=== PATIENT | female | born 1965 | race Two or more races ===

== ENCOUNTER 2017-08-06 14:59 | Inpatient (IN) | payer MEDICAID ==
[~2017-08-06] VITALS: Ht 165.1 cm; Wt 55.5 kg
[2017-08-06] MEDS ORDERED: ONDANSETRON 2MG/ML, 2ML ONE (15:27)
[2017-08-06] MEDS ORDERED: FAMOTIDINE 20 MG/2 ML ONE (15:28)
[2017-08-06] MEDS ORDERED: ONDANSETRON 2MG/ML, 2ML IVPush ONE (15:30)
[2017-08-06] MEDS ORDERED: FAMOTIDINE 20 MG/2 ML IVP ONE (15:30)
[2017-08-06] MEDS ORDERED: SODIUM CHLORIDE FLUSH 10ML SYR IVF ONE (15:30)
[2017-08-06] MEDS ORDERED: SODIUM CHLORIDE 0.9% 1,000ML IVBOLUS ONE (15:30)
[2017-08-06 15:32] LABS: HEMOGLOBIN 15.9 g/dL (11.7-16.4); WHITE BLOOD COUNT 8.4 x10^3/uL (3.4-10)
[2017-08-06 15:40] LABS: ASPARTATE AMINO TRANSFERASE 65 U/L (15-37); BLOOD UREA NITROGEN 5 mg/dL (7-18)
[2017-08-06] MEDS ORDERED: THIAMINE IV ONE (16:00)
[2017-08-06] MEDS ORDERED: MAGNESIUM SULFATE IV ONE (16:00)
[2017-08-06] MEDS ORDERED: [UNRECOGNIZED DRUG - OTHER] IV ONE (16:00)
[2017-08-06] MEDS ORDERED: FOLIC ACID IV ONE (16:00)
[2017-08-06] MEDS ORDERED: MVI ADULT IV ONE (16:00)
[2017-08-06] MEDS ORDERED: LORazepam 2 MG/ML, 1ML IVPush PRN (16:30)
[2017-08-06 16:57] LABS: DAU SCREEN DISCLAIMER
[2017-08-06 17:02] LABS: PATH.CAST-FLAG NOT PRESENT; SPERM-FLAG NOT PRESENT; SRC-FLAG NOT PRESENT; XTAL-FLAG NOT PRESENT; YLC-FLAG NOT PRESENT
[2017-08-06] MEDS ORDERED: LORazepam 2 MG/ML, 1ML IV PRN ×5 (17:30)
[2017-08-06] MEDS ORDERED: MAALOX/HYOSCYAMINE/LIDOCAINE 45 ML BTL PO ONE (17:30)
[2017-08-06] MEDS ORDERED: LORazepam 1MG TABLET PO PRN ×4 (17:30)
[2017-08-06] MEDS ORDERED: GUAIFENESIN/DM 200-20MG, 10ML UDC PO PRN (17:30)
[2017-08-06] MEDS ORDERED: ONDANSETRON ODT 4 MG PO PRN (17:30)
[2017-08-06] MEDS ORDERED: LABETALOL 5MG/ML, 20ML IVPush PRN (17:30)
[2017-08-06] MEDS ORDERED: LORazepam 0.5MG TABLET PO PRN (17:30)
[2017-08-06] MEDS ORDERED: ONDANSETRON 2MG/ML, 2ML IVPush PRN (17:30)
[2017-08-06 19:36] LABS: BLOOD UREA NITROGEN 6 mg/dL (7-18)
[2017-08-06 19:46] LABS: POTASSIUM,URINE RANDOM 7 mmol/L
[2017-08-06 20:00] VITALS: BP 150/87
[2017-08-06] MEDS: HYDROcodone/APAP 5/325 TABLET PO PRN (21:42)
[2017-08-06] MEDS: OMEPRAZOLE 20 MG CAPSULE.DR PO SCH (21:42)
[2017-08-06] MEDS: ENOXAPARIN 40 MG/0.4 ML SQ SCH (21:43)
[2017-08-07 00:16] VITALS: BP 147/87
[2017-08-07 02:00] VITALS: BP 145/84
[2017-08-07] MEDS: THIAMINE 500 MG in SODIUM CHLORIDE 0.9% 50 ML IV SCH ×3 (02:25→18:41)
[2017-08-07] MEDS: HYDROcodone/APAP 5/325 TABLET PO PRN ×2 (02:40→20:14)
[2017-08-07 06:00] LABS: HEMATOCRIT 47.3 % (34.6-47.8); HEMOGLOBIN 16.2 g/dL (11.7-16.4); WHITE BLOOD COUNT 4.9 x10^3/uL (3.4-10)
[2017-08-07 06:06] LABS: BLOOD UREA NITROGEN 8 mg/dL (7-18)
[2017-08-07 06:48] VITALS: BP 140/87
[2017-08-07] MEDS ORDERED: POTASSIUM CHLORIDE 20 MEQ, MAGNESIUM SULFATE 1 GM, MVI ADULT 10 ML, FOLIC ACID 1 MG in ... IV SCH (08:00)
[2017-08-07] MEDS: NICOTINE 14MG/24 HR PATCH.TD24 TD SCH (08:30)
[2017-08-07] MEDS: OMEPRAZOLE 20 MG CAPSULE.DR PO SCH (08:39)
[2017-08-07] MEDS: SENNA/DOCUSATE TABLET PO SCH (08:40)
[2017-08-07 12:01] VITALS: BP 127/88
[2017-08-07 14:35] LABS: BLOOD UREA NITROGEN 10 mg/dL (7-18)
[2017-08-07] MEDS ORDERED: POTASSIUM CHLORIDE 20 MEQ, MAGNESIUM SULFATE 1 GM, FOLIC ACID 1 MG, MVI ADULT 10 ML in ... IV SCH (17:00)
[2017-08-07 19:45] VITALS: BP 134/88
[2017-08-07] MEDS: ENOXAPARIN 40 MG/0.4 ML SQ SCH (20:14)
[2017-08-08 01:46] VITALS: BP 128/87
[2017-08-08] MEDS: THIAMINE 500 MG in SODIUM CHLORIDE 0.9% 50 ML IV SCH ×2 (04:06→08:30)
[2017-08-08 04:53] LABS: HEMATOCRIT 44.6 % (34.6-47.8); HEMOGLOBIN 15.1 g/dL (11.7-16.4); WHITE BLOOD COUNT 5.4 x10^3/uL (3.4-10)
[2017-08-08 05:05] LABS: ASPARTATE AMINO TRANSFERASE 38 U/L (15-37); BLOOD UREA NITROGEN 19 mg/dL (7-18)
[2017-08-08 07:56] VITALS: BP 136/92
[2017-08-08] MEDS ORDERED: OMEP-110 PO (08:03)
[2017-08-08] MEDS ORDERED: FOLI-17 PO (08:03)
[2017-08-08] MEDS ORDERED: THIA100T10 PO (08:03)
[2017-08-08] MEDS: SENNA/DOCUSATE TABLET PO SCH (08:30)
[2017-08-08] MEDS: OMEPRAZOLE 20 MG CAPSULE.DR PO SCH (08:30)
[2017-08-08] MEDS: NICOTINE 14MG/24 HR PATCH.TD24 TD SCH (08:30)
[2017-08-08] MEDS ORDERED: NICO-486 TD (08:57)
[2017-08-08] MEDS ORDERED: PNEUMOCOCCAL 23 VACCINE IM-VACC ONE (09:00)
[2017-08-08] MEDS ORDERED: FLU VACC QS2017-18 (36MOS+) UP/PF 0.5 ML IM-VACC ONE (09:00)
[2017-08-08] MEDS ORDERED: THIAMINE 500 MG in SODIUM CHLORIDE 0.9% 50 ML IV ONE (13:00)
== END 2017-08-08 11:15 | disposition home health service (06) | DRG 432 ==
LOC: ED 16:03 → EDIP 16:04 → ED 16:27 → 4WST 18:15
PROVIDERS: ADMIT Hospitalist; ATTEND Hospitalist
DX: K70.10 Alcoholic hepatitis without ascites (principal); K85.90 Acute pancreatitis without necrosis or infection, unspecified; E83.42 Hypomagnesemia; E87.2 Acidosis; E87.1 Hypo-osmolality and hyponatremia; F10.239 Alcohol dependence with withdrawal, unspecified; E51.2 Wernicke's encephalopathy; E86.0 Dehydration; K29.20 Alcoholic gastritis without bleeding; Z87.891 Personal history of nicotine dependence; G89.29 Other chronic pain; R27.0 Ataxia, unspecified
CPT/HCPCS: 36415; 70450; 76700; 80048; 80053; 80061; 80307; 81001; 82140; 82436; 82570; 83690; 83735; 84133; 84300; 84439; 85025; 85610; 90686; 90732; 93005; 96361; 96374; 96375; J1650; J2405; J3411; J3475; J3480; G0479; J7030; S0028

== ENCOUNTER 2018-05-22 11:39 | Emergency (ER) | payer MEDICAID, OTHER ==
[~2018-05-22] VITALS: Ht 165.1 cm; Wt 59.5 kg
[~2018-05-22 11:39] MED LIST: FOLI-17 PO; NICO-486 TD; OMEP-110 PO; THIA100T10 PO
[2018-05-22] MEDS ORDERED: TRAZ150T62 PO (12:21)
[2018-05-22] MEDS ORDERED: SERT50TA PO (12:21)
[2018-05-22] MEDS ORDERED: THIAMINE 100MG TABLET PO ONE (12:30)
[2018-05-22] MEDS ORDERED: LORazepam 2 MG/ML, 1ML IVPush PRN (12:30)
[2018-05-22] MEDS ORDERED: SODIUM CHLORIDE 0.9% 1,000ML IVBOLUS ONE (12:30)
[2018-05-22] MEDS ORDERED: PROMETHAZINE 25 MG/ML, 1ML IM ONE (12:30)
[2018-05-22] MEDS ORDERED: LORazepam 2 MG/ML, 1ML ONE (12:32)
[2018-05-22] MEDS ORDERED: THIAMINE 100MG TABLET ONE (12:32)
[2018-05-22 12:46] LABS: BASOPHILS # (AUTO) 0.02 x10^3/uL (0-0.1); BASOPHILS % (AUTO) 1 % (0-1); EOSINOPHILS # (AUTO) 0.01 x10^3/uL (0-0.4); EOSINOPHILS % (AUTO) 0 % (1-7); LYMPHOCYTES % (AUTO) 19 % (22-44); MD NO; MEAN CORPUSCULAR HEMOGLOBIN 32.9 pg (27.0-34.8); MEAN CORPUSCULAR HGB CONC 34.5 g/dL (32.4-35.8); MEAN CORPUSCULAR VOLUME 95.3 fL (80-100); MEAN PLATELET VOLUME 8.3 fL (7.4-10.4); MONOCYTES # (AUTO) 0.24 x10^3/uL (0.2-0.8); MONOCYTES % (AUTO) 5 % (2-9); NEUTROPHILS # (AUTO) 3.72 x10^3/uL (1.8-6.8); NEUTROPHILS % (AUTO) 76 % (42-75); PLATELET COUNT 171 x10^3/uL (130-400); RED BLOOD COUNT 4.35 x10^6/uL (3.82-5.3); RED CELL DISTRIBUTION WIDTH 12.1 % (9.6-15.2)
[2018-05-22] MEDS ORDERED: METOCLOPRAMIDE 5 MG/ML, 2ML ONE (12:49)
[2018-05-22 12:57] LABS: ALBUMIN 4.1 g/dL (3.4-5.0); CALCIUM 8.8 mg/dL (8.5-10.1); CHLORIDE 99 mmol/L (98-107)
[2018-05-22] MEDS ORDERED: METOCLOPRAMIDE 5 MG/ML, 2ML IVPush ONE (13:00)
[2018-05-22 13:04] LABS: ALANINE AMINOTRANSFERASE 45 U/L (12-78); ALKALINE PHOSPHATASE 91 U/L (45-117); ANION GAP 14 mmol/L (5-15); BILIRUBIN,TOTAL 0.7 mg/dL (0.2-1.0); CREATININE 0.71 mg/dL (0.55-1.02); TOTAL PROTEIN 7.5 g/dL (6.4-8.2)
[2018-05-22] MEDS ORDERED: POTASSIUM CHLORIDE 20 MEQ TAB.ER.PRT ONE (13:38)
[2018-05-22 13:55] LABS: MICROSCOPIC AUTO
[2018-05-22] MEDS ORDERED: POTASSIUM CHLORIDE 20 MEQ TAB.ER.PRT PO ONE (14:00)
[2018-05-22 14:02] LABS: CULTURE INDICATED? NO
[2018-05-22 14:41] VITALS: BP 122/83
== END 2018-05-22 14:45 | disposition home or self-care (01) ==
LOC: ED 14:39
DX: K85.20 Alcohol induced acute pancreatitis without necrosis or infection (principal); F10.239 Alcohol dependence with withdrawal, unspecified; Z71.41 Alcohol abuse counseling and surveillance of alcoholic; I10 Essential (primary) hypertension
CPT/HCPCS: 36415; 80053; 80307; 81001; 83690; 83735; 85025; 96361; 96374; 96375; 99284; J2060; J2765; J7030